=== PATIENT | male | born 1955 | race Caucasian/White ===

== ENCOUNTER 2017-08-09 15:57 | Emergency (ER) | payer MEDICAID ==
[2017-08-09 16:15] VITALS: BP 97/72
[2017-08-09] MEDS ORDERED: Sodium Chloride 0.9% 1,000 ML IV ONE (16:41)
--- NOTE | 2017-08-09 16:55 | EDM.PDOC ---
ED HPI GENERAL MEDICAL PROBLEM - General Chief Complaint: Gastrointestinal Problem Stated Complaint: CHEST CONGESTION/NAUSEA Time Seen by Provider: 08/09/17 16:22 Source of Information: Reports: Patient History Limitations: Reports: No Limitations - History of Present Illness INITIAL COMMENTS - FREE TEXT/NARRATIVE: Patient is a 61-year-old male who presents ED complaining of 2 day history of chest congestion, nausea, and intermittent dizziness. Patient states yesterday while working in the garden he bent over and upon standing became dizzy and fell over. There was no loss of conscious. Since then he has had intermittent dizziness. Sister states as of recent he's had a little bit of chest congestion with some postnasal drip and runny nose. There is no cough. No chest pain. No emesis. No abdominal pain. No dysuria. No recent sick exposure or diarrhea. He's been eating and drinking as normal with no issues. He has a history of throat cancer and recently completed chemotherapy March 2017 and radiation April 2017. Upon examination to the ED he really has no significant complaints. 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 Otherwise patient only takes tramadol and vitamins. He does not smoke. Alcohol use none. Recreational drug use none. PCP local. - Related Data Allergies Allergy/AdvReac Type Severity Reaction Status Date / Time No Known Allergies Allergy Verified 11/22/14 11:44 Past Medical History Gastrointestinal History: Reports: Chronic Constipation Musculoskeletal History: Reports: Back Pain, Chronic Oncologic (Cancer) History: Reports: Other (See Below) Other Oncologic History: oral Social & Family History - Family History Family Medical History: Noncontributory - Tobacco Use Smoking Status *Q: Never Smoker - Caffeine Use Caffeine Use: Reports: None - Recreational Drug Use Recreational Drug Use: No ED ROS GENERAL - Review of Systems Review Of Systems: ROS reveals no pertinent complaints other than HPI. ED EXAM, DIZZINESS - Physical Exam Exam: See Below Exam Limited By: No Limitations General Appearance: Alert, WD/WN, No Apparent Distress, Cachetic Eye Exam: Bilateral Eye: Normal Inspection, Nystagmus (none noted. ), PERRL Nystagmus: No: worsens with head to L, worsens with head to R, reproducible, reversible, constant, short duration Ears: Normal External Exam, Hearing Grossly Normal Nose: Normal Inspection, Normal Mucosa, No Blood Throat/Mouth: Normal Inspection, Normal Oropharynx, Normal Voice, No Airway Compromise Head Exam: Atraumatic, Normocephalic Vertigo: No: worsens with head to L, worsens with head to R, reproducible, reversible, constant, short duration Neck: Non-Tender, Full Range of Motion. No: Normal Inspection, Supple, Lymphadenopathy (L), Lymphadenopathy (R) Respiratory/Chest: No Respiratory Distress, Lungs Clear, Normal Breath Sounds, No Accessory Muscle Use, Chest Non-Tender Cardiovascular: Normal Peripheral Pulses, Regular Rate, Rhythm GI/Abdominal: Normal Bowel Sounds, Soft, Non-Tender, No Organomegaly, No Distention Neurological: Alert, Normal Mood/Affect, Normal Dorsiflexion, CN II-XII Intact, Normal Gait Back Exam: CVA Tenderness (L), CVA Tenderness (R). No: Normal Inspection Extremities: Non-Tender, No Pedal Edema, Normal Capillary Refill. No: Normal Inspection Psychiatric: Normal Affect, Normal Mood Skin Exam: Warm, Dry, Intact, Normal Color, No Rash Course - Vital Signs Last Recorded V/S: Last Vital Signs Temp 98.2 F 08/09/17 16:09 Pulse 90 08/09/17 16:09 Resp 18 08/09/17 16:09 BP 97/72 08/09/17 16:09 Pulse Ox 99 08/09/17 16:09 Orthostatic Blood Pressure [ 91/72 Standing] Orthostatic Blood Pressure [ 105/68 Sitting] Orthostatic Blood Pressure [ 111/69 Supine] - Orders/Labs/Meds Orders: Active Orders 24 hr Category Date Time Status EKG Documentation Completion [RC] STAT Care 08/09/17 16:41 Active Orthostatic Vital Signs [RC] ASDIRECTED Care 08/09/17 16:42 Active Chest 1V Frontal [CR] Stat Exams 08/09/17 16:41 Taken Chest wo Cont [CT] Stat Exams 08/09/17 18:26 Taken CULTURE BLOOD [BC] Stat Lab 08/09/17 16:58 Received CULTURE BLOOD [BC] Stat Lab 08/09/17 17:12 Received UA W/MICROSCOPIC [URIN] Stat Lab 08/09/17 21:20 Received Sodium Chloride 0.9% [Normal Saline] 1,000 ml Med 08/09/17 21:00 Active IV ASDIRECTED Blood Culture x2 Reflex Set [OM.PC] Stat Oth 08/09/17 16:41 Ordered Medication Orders Sodium Chloride (Normal Saline) 1,000 mls @ 125 mls/hr IV ASDIRECTED AZUCENA Last Admin: 08/09/17 21:15 Dose: 125 mls/hr Labs: Laboratory Tests 08/09/17 08/09/17 08/09/17 Range/Units 16:58 16:58 16:58 WBC 8.25 (4.23-9.07) K/mm3 RBC 2.95 L (4.63-6.08) M/mm3 Hgb 9.3 L (13.7-17.5) gm/L Hct 28.6 L (40.1-51.0) % MCV 96.9 H (79.0-92.2) fl MCH 31.5 (25.7-32.2) pg MCHC 32.5 (32.2-35.5) g/dl RDW Std Deviation 56.6 H (35.1-43.9) fL Plt Count 207 (163-337) K/mm3 MPV 10.5 (9.4-12.3) fl Neutrophils % (Manual) 86 H (40-60) % Band Neutrophils % 0 (0-10) % Lymphocytes % (Manual) 8 L (20-40) % Atypical Lymphs % 0 % Monocytes % (Manual) 6 (2-10) % Eosinophils % (Manual) 0 L (0.8-7.0) % Basophils % (Manual) 0 L (0.2-1.2) Platelet Estimate Adequate Plt Morphology Comment See note Hypochromasia 1+ slight Anisocytosis 1+ slight Microcytosis 1+ slight RBC Morph Comment Not Reportable Sodium 136 (136-145) mEq/L Potassium 4.0 (3.5-5.1) mEq/L Chloride 100 (98-107) mEq/L Carbon Dioxide 24 (21-32) mEq/L Anion Gap 16.0 H (5-15) BUN 39 H (7-18) mg/dL Creatinine 1.9 H (0.7-1.3) mg/dL Est Cr Clr Drug Dosing 31.43 mL/min Estimated GFR (MDRD) 36 (>60) mL/min BUN/Creatinine Ratio 20.5 H (14-18) Glucose 128 H (80-115) mg/dL Lactic Acid (0.4-2.0) mmol/L Calcium 8.4 L (8.5-10.1) mg/dL Total Bilirubin 0.5 (0.2-1.0) mg/dL AST 12 L (15-37) U/L ALT 8 L (16-63) U/L Alkaline Phosphatase 84 (46-116) U/L C-Reactive Protein 44.9 H* (<1.0) mg/dL Total Protein 6.4 (6.4-8.2) g/dl Albumin 1.8 L (3.4-5.0) g/dl Globulin 4.6 gm/dL Albumin/Globulin Ratio 0.4 L (1-2) Mycoplasma pneumon IgM Negative (NEGATIVE) 08/09/17 Range/Units 17:12 WBC (4.23-9.07) K/mm3 RBC (4.63-6.08) M/mm3 Hgb (13.7-17.5) gm/L Hct (40.1-51.0) % MCV (79.0-92.2) fl MCH (25.7-32.2) pg MCHC (32.2-35.5) g/dl RDW Std Deviation (35.1-43.9) fL Plt Count (163-337) K/mm3 MPV (9.4-12.3) fl Neutrophils % (Manual) (40-60) % Band Neutrophils % (0-10) % Lymphocytes % (Manual) (20-40) % Atypical Lymphs % % Monocytes % (Manual) (2-10) % Eosinophils % (Manual) (0.8-7.0) % Basophils % (Manual) (0.2-1.2) Platelet Estimate Plt Morphology Comment Hypochromasia Anisocytosis Microcytosis RBC Morph Comment Sodium (136-145) mEq/L Potassium (3.5-5.1) mEq/L Chloride (98-107) mEq/L Carbon Dioxide (21-32) mEq/L Anion Gap (5-15) BUN (7-18) mg/dL Creatinine (0.7-1.3) mg/dL Est Cr Clr Drug Dosing mL/min Estimated GFR (MDRD) (>60) mL/min BUN/Creatinine Ratio (14-18) Glucose (80-115) mg/dL Lactic Acid 1.7 (0.4-2.0) mmol/L Calcium (8.5-10.1) mg/dL Total Bilirubin (0.2-1.0) mg/dL AST (15-37) U/L ALT (16-63) U/L Alkaline Phosphatase (46-116) U/L C-Reactive Protein (<1.0) mg/dL Total Protein (6.4-8.2) g/dl Albumin (3.4-5.0) g/dl Globulin gm/dL Albumin/Globulin Ratio (1-2) Mycoplasma pneumon IgM (NEGATIVE) Meds: Medications Generic Name Dose Route Start Last Admin Trade Name Freq PRN Reason Stop Dose Admin Sodium Chloride 1,000 mls @ 125 mls/hr 08/09/17 21:00 08/09/17 21:15 Normal Saline IV 125 mls/hr ASDIRECTED AZUCENA Administration Discontinued Medications Generic Name Dose Route Start Last Admin Trade Name Freq PRN Reason Stop Dose Admin Azithromycin 500 mg 08/09/17 18:27 08/09/17 18:36 Zithromax PO 08/09/17 18:28 500 mg ONETIME ONE Administration Sodium Chloride 1,000 mls @ 999 mls/hr 08/09/17 16:41 08/09/17 17:05 Normal Saline IV 08/09/17 17:41 999 mls/hr ONETIME ONE Administration Ceftriaxone Sodium 1 gm/ 100 mls @ 200 mls/hr 08/09/17 18:24 08/09/17 18:36 Sodium Chloride IV 08/09/17 18:53 200 mls/hr ONETIME ONE Administration Lorazepam 0.5 mg 08/09/17 18:45 08/09/17 18:51 Ativan IVPUSH 08/09/17 18:46 0.5 mg ONETIME ONE Administration - Re-Assessments/Exams Free Text/Narrative Re-Assessment/Exam: IV established with normal saline 1 L. Initial labs and studies include CBC, chem 14, CRP, blood cultures 2, UA, chest x-ray one view, with second vitals, and EKG. Per sister patient was receiving IV fluids 3 times a week up until 3 weeks ago. Labs reviewed: White blood cell count 8.25, hemoglobin 9.3, platelet count 207, neutrophil percent is 86 with no left shift. Sodium 136, potassium 4.0, CO2 24, AG 16, BUN 39, creatinine 1.9 which is double baseline. Glucose 128, CRP elevated at 44.9. EKG: sinus rhythm rate of 87. No acute ST changes noted. Low voltage. CXR reviewed: left sided pleural effusion possible infiltration. I have ordered rocephin 1 gram IV and azithromycin 500mg PO to treat community aquired pneumonia. This was reviewed with Dr. Raul Peterson and she agrees. Suggested CT of the chest wo. 1844 I have ordered ativan 0.5 mg IVP since patient becomes claustrophobic with CT/MRI type imaging. Lactic Acid 1.7. Mycoplasma: negative 20[address] [facility] called and provided CT results. Radiologists does not see findings concerning for cardiac tamponade. CT Chest W/O IMPRESSION: 1. COPD 2. 5 mm pulmonary nodule in the right upper lobe. 3. Subsegmental atelectasis in the right middle lobe. 4. Consolidation in the left lower lobe compatible with pneumonia. 5. Large left pleural effusion which has a loculated contour. 6. Large left pericardial effusion and an effusion adjacent to the descending thoracic aorta. 7. Metastatic seeding of the pleura with associated malignant pleural effusions cannot be ruled out. Metastatic nodules could be obscured by the adjacent pleural fluid. 8. Atherosclerotic calcification of the coronary arteries and other nonacute findings as described above. I have discussed results of the CT study with the patient. He was not completely sure which hospital he underwent care for his throat cancer. Patient believes was [facility]. Sister is present with this discussion. Sister states the treatment was conducted at [facility]. Patient does not want to go to [place] due to the cost of traveling via ambulance and or by air. Thus has requested to be evaluated in [place]. [address] Liang claims correspondence clerk Hospitalists at [facility]. He has accepted the patient. Ambulance has been notified. Transfer paperwork completed. VS BP 109/67, HR 84, SPO2 97, RR 18. Departure - Departure Time of Disposition: 20:37 Disposition: DC/Tfer to Acute Hospital 02 Condition: Good Clinical Impression: Large pleural effusion, Pericardial effusion Pneumonia Qualifiers: Pneumonia type: due to unspecified organism Laterality: left Lung location: lower lobe of lung Qualified Code(s): J18.1 - Lobar pneumonia, unspecified organism - Discharge Information Instructions: Pericardial Effusion, Pleural Effusion, Community-Acquired Pneumonia, Adult Referrals: Kenneth Lazaro PA-C [Primary Care Provider] - - My Orders Last 24 Hours: My Active Orders 08/09/17 16:41 EKG Documentation Completion [RC] STAT Chest 1V Frontal [CR] Stat Blood Culture x2 Reflex Set [OM.PC] Stat 08/09/17 16:42 Orthostatic Vital Signs [RC] ASDIRECTED 08/09/17 16:58 CULTURE BLOOD [BC] Stat 08/09/17 17:12 CULTURE BLOOD [BC] Stat 08/09/17 18:26 Chest wo Cont [CT] Stat 08/09/17 21:00 Sodium Chloride 0.9% [Normal Saline] 1,000 ml IV ASDIRECTED 08/09/17 21:20 UA W/MICROSCOPIC [URIN] Stat - Assessment/Plan Last 24 Hours: My Active Orders 08/09/17 16:41 EKG Documentation Completion [RC] STAT Chest 1V Frontal [CR] Stat Blood Culture x2 Reflex Set [OM.PC] Stat 08/09/17 16:42 Orthostatic Vital Signs [RC] ASDIRECTED 08/09/17 16:58 CULTURE BLOOD [BC] Stat 08/09/17 17:12 CULTURE BLOOD [BC] Stat 08/09/17 18:26 Chest wo Cont [CT] Stat 08/09/17 21:00 Sodium Chloride 0.9% [Normal Saline] 1,000 ml IV ASDIRECTED 08/09/17 21:20 UA W/MICROSCOPIC [URIN] Stat
[2017-08-09] MEDS ORDERED: cefTRIAXone 1 GM in Sodium Chloride 0.9% 100 ML IV ONE (18:24)
[2017-08-09] MEDS ORDERED: Azithromycin 250 MG Tab PO ONE (18:27)
[2017-08-09] MEDS ORDERED: LORazepam 2 MG/ML SDV IVPUSH ONE (18:45)
[2017-08-09] MEDS ORDERED: Sodium Chloride 0.9% 1,000 ML IV SCH (21:00)
--- NOTE | 2017-08-12 08:51 | CR ---
Chest: Portable view of the chest is obtained. Comparison: No prior chest x-ray, previous chest CT of 04/19/15. Pleural effusion is seen within the left base. Mild adjacent parenchymal density is seen adjacent to the pleural effusion. Left upper and right lung are clear. Infusion catheter is seen entering from the right side. Heart size does not appear enlarged. Mild scoliosis is noted within the spine. Impression: 1. Left-sided pleural effusion with mild adjacent parenchymal density most likely representing chronic change from the pleural effusion. 2. Other incidental findings. Diagnostic code #3
--- NOTE | 2017-08-12 10:18 | CT ---
CT chest Technique: Multiple axial sections through the chest were obtained from above the lung apices inferiorly through the lung bases. Intravenous contrast was not utilized. Comparison: Prior chest x-ray performed earlier on the same day (5:23 PM) and prior chest CT study of 04/19/15. Findings: Loculated pleural effusion is seen within the left base. Small pericardial effusion is noted. Coronary artery calcification is seen. Port-A-Cath is present. Emphysematous change is noted. Small nodule noted within the right middle lobe which is stable from prior CT exam back to 06/10/14 which is felt to be incidental. Mild parenchymal density is noted within the right middle lobe believed to represent interval scarring. Slight parenchymal density noted within the left lung base most likely due to atelectasis and probable fibrosis secondary to the pleural effusion. Bone window settings were reviewed which show mild degenerative change within the spine. Impression: 1. Loculated left sided pleural effusion which is an interval change from previous exam. Pericardial effusion is also seen. Etiologies for this fluid is not seen. Associated parenchymal density is seen within the left base most likely due to combination of atelectasis and fibrosis. 2. Small parenchymal density within the right middle lobe most likely due to area of scarring. 3. Small right middle lobe nodule which remains stable from prior CT exams. 4. Emphysematous change and other incidental findings. Diagnostic code #3 I agree with preliminary report from [facility], finalized at 08/09/17, 8:59 PM Central Time
== END 2017-08-09 21:35 ==
LOC: JD.ED 15:57
DX: I31.3 Pericardial effusion (noninflammatory) (principal); J18.9 Pneumonia, unspecified organism; J90 Pleural effusion, not elsewhere classified
CPT/HCPCS: 36415; 71045; 71250; 80053; 81001; 83605; 85007; 85027; 86140; 86738; 87040; 93005; 96361; 96365; 96375; 99285; A9270; J0696; J2060; J7030; J7040; 93010

== ENCOUNTER 2018-12-09 11:03 | Emergency (ER) | payer MEDICAID ==
[2018-12-09 11:17] VITALS: BP 81/66; PULSE 91
[2018-12-09] MEDS ORDERED: Sodium Chloride 0.9% 10 ML Syringe FLUSH PRN (11:59)
[2018-12-09] MEDS ORDERED: Sodium Chloride 0.9% 1,000 ML IV ONE (11:59)
[2018-12-09] MEDS ORDERED: FLU Vacc QS2019-20(6MOS+)/PF 60 MCG/0.5 ML SYRINGE IM ONE (12:00)
--- NOTE | 2018-12-09 12:05 | EDM.PDOC ---
ED HPI GENERAL MEDICAL PROBLEM - General Chief Complaint: Respiratory Problem Stated Complaint: CHEST PAIN Time Seen by Provider: 12/09/18 11:13 Source of Information: Reports: Patient, Family (sisters), RN Notes Reviewed History Limitations: Reports: No Limitations - History of Present Illness INITIAL COMMENTS - FREE TEXT/NARRATIVE: Patient is a 63-year-old male who presents to the ED for evaluation of some shortness of breath. The patient states that over the past few days, he is been having some increased shortness of breath, is complaining of being cold. He does not have any fevers that he is aware of, and he states that he is normally chilled. He denies any nausea/vomiting/diarrhea, he had 1 episode of diarrhea a couple days ago for which she took Imodium. The sisters state that the imodium sat in his throat a little while, and they were questioning possible aspiration issues. He denies any cough or chest pain that he's been having. Patient notes he had a history of throat or tongue cancer a few years ago, for which she took chemotherapy for, and his sisters present in the room state that he had a good checkup in [place] here last month. History is somewhat limited due as the patient had repeats himself. Of note the patient's blood pressure was low at 81 systolically at time of initial triage, but has come up to 95/59 as he's been sitting in the room, heart rate 93, respiratory rate at 24 , when I was able to get a pulse ox, it was in the 90s on room air. The sister' s state that when his blood pressure gets low like this, he gets cold and somewhat forgetful. The patient's primary care provider is Kenneth Lazaro. - Related Data Allergies Allergy/AdvReac Type Severity Reaction Status Date / Time No Known Allergies Allergy Verified 12/09/18 11:17 Home Meds: Home Meds . [No Known Home Meds] 12/09/18 [History] Past Medical History HEENT History: Reports: None Cardiovascular History: Reports: None Respiratory History: Reports: SOB Gastrointestinal History: Reports: Chronic Constipation Genitourinary History: Reports: None Musculoskeletal History: Reports: Back Pain, Chronic Neurological History: Reports: None Psychiatric History: Reports: None Endocrine/Metabolic History: Reports: None Hematologic History: Reports: None Immunologic History: Reports: None Oncologic (Cancer) History: Reports: Other (See Below) Other Oncologic History: Oral. Pt unable to tell RN what type of cancer he has, but he has a port placed and has been done with chemo/radiation for the last few months on 12/09/18. Has cancer treatments in [place]. Dermatologic History: Reports: None - Infectious Disease History Infectious Disease History: Reports: None - Past Surgical History Head Surgeries/Procedures: Reports: None Social & Family History - Family History Family Medical History: Noncontributory - Tobacco Use Smoking Status *Q: Never Smoker - Caffeine Use Caffeine Use: Reports: Soda - Recreational Drug Use Recreational Drug Use: No ED ROS GENERAL - Review of Systems Review Of Systems: See Below Constitutional: Reports: Chills. Denies: Fever, Malaise, Weakness, Decreased Appetite HEENT: Reports: No Symptoms Respiratory: Reports: Shortness of Breath. Denies: Wheezing, Cough, Sputum Cardiovascular: Denies: Chest Pain Endocrine: Reports: No Symptoms GI/Abdominal: Denies: Abdominal Pain, Nausea, Vomiting : Reports: No Symptoms Musculoskeletal: Reports: No Symptoms Skin: Reports: No Symptoms Neurological: Reports: No Symptoms Psychiatric: Reports: No Symptoms Hematologic/Lymphatic: Reports: No Symptoms Immunologic: Reports: No Symptoms ED EXAM, GENERAL - Physical Exam Exam: See Below Exam Limited By: No Limitations General Appearance: Alert, WD/WN, No Apparent Distress Eye Exam: Bilateral Eye: EOMI, Normal Inspection, PERRL Throat/Mouth: Normal Inspection, Normal Lips, Normal Teeth, Normal Gums, Normal Oropharynx, Normal Voice, No Airway Compromise Head: Atraumatic, Normocephalic Neck: Normal Inspection Respiratory/Chest: No Respiratory Distress, Lungs Clear, Normal Breath Sounds, No Accessory Muscle Use, Chest Non-Tender Cardiovascular: Normal Peripheral Pulses, Regular Rate, Rhythm, No Edema, No Murmur Peripheral Pulses: 3+: Radial (L), Radial (R) GI/Abdominal: Normal Bowel Sounds, Soft, Non-Tender, No Distention, No Mass Extremities: Normal Inspection, Normal Capillary Refill Neurological: Alert, Oriented, Normal Cognition, No Motor/Sensory Deficits Psychiatric: Normal Affect, Normal Mood, Other (somewhat forgetful, but answers questions appropriately.) Skin Exam: Warm, Dry, Intact, Normal Color, No Rash EKG INTERPRETATION EKG Date: 12/09/18 Time: 11:50 Rhythm: NSR Rate (Beats/Min): 76 Patterson: Normal P-Wave: Present QRS: Normal ST-T: Normal QT: Normal Comparison: NA - No Prior EKG EKG Interpretation Comments: Reviewed by Dr. Peterson, he notes mild ST depression in inferior leads. Course - Vital Signs Last Recorded V/S: Last Vital Signs Temp 98.4 F 12/09/18 11:12 Pulse 91 12/09/18 11:12 Resp 18 12/09/18 11:12 BP 81/66 L 12/09/18 11:12 Pulse Ox 100 12/09/18 12:00 - Orders/Labs/Meds Orders: Active Orders 24 hr Category Date Time Status EKG Documentation Completion [RC] STAT Care 12/09/18 11:41 Active Influenza Vaccine Charge [RC] .DISCHARGE Care 12/09/18 11:25 Active Peripheral IV Care [RC] . DIRECTED Care 12/09/18 11:59 Active Sodium Chloride 0.9% [Saline Flush] Med 12/09/18 11:59 Active 10 ml FLUSH ASDIRECTED PRN Peripheral IV Insertion Adult [OM.PC] Stat Oth 12/09/18 11:59 Ordered Medication Orders Sodium Chloride (Saline Flush) 10 ml FLUSH ASDIRECTED PRN PRN Reason: Keep Vein Open Last Admin: 12/09/18 12:45 Dose: 10 ml Labs: Laboratory Tests 12/09/18 12/09/18 12/09/18 Range/Units 12:11 12:11 12:11 WBC 5.83 (4.23-9.07) K/mm3 RBC 5.15 (4.63-6.08) M/mm3 Hgb 15.0 D (13.7-17.5) gm/dl Hct 44.9 (40.1-51.0) % MCV 87.2 (79.0-92.2) fl MCH 29.1 (25.7-32.2) pg MCHC 33.4 (32.2-35.5) g/dl RDW Std Deviation 51.8 H (35.1-43.9) fL Plt Count 142 L D (163-337) K/mm3 MPV 10.3 (9.4-12.3) fl Neutrophils % (Manual) 74 H (40-60) % Band Neutrophils % 0 (0-10) % Lymphocytes % (Manual) 19 L (20-40) % Atypical Lymphs % 0 % Monocytes % (Manual) 6 (2-10) % Eosinophils % (Manual) 1 (0.8-7.0) % Basophils % (Manual) 0 L (0.2-1.2) Platelet Estimate Adequate RBC Morph Comment Normal PT 15.2 H (9.7-12.0) SECONDS INR 1.42 APTT 26 (22-31) SECONDS Sodium 143 (136-145) mEq/L Potassium 3.9 (3.5-5.1) mEq/L Chloride 106 (98-107) mEq/L Carbon Dioxide 25 (21-32) mEq/L Anion Gap 15.9 H (5-15) BUN 14 (7-18) mg/dL Creatinine 1.6 H (0.7-1.3) mg/dL Est Cr Clr Drug Dosing TNP Estimated GFR (MDRD) 44 (>60) mL/min BUN/Creatinine Ratio 8.8 L (14-18) Glucose 84 (80-115) mg/dL Lactic Acid (0.4-2.0) mmol/L Calcium 9.5 (8.5-10.1) mg/dL Total Bilirubin 0.2 (0.2-1.0) mg/dL AST 25 (15-37) U/L ALT 21 (16-63) U/L Alkaline Phosphatase 104 (46-116) U/L Troponin I < 0.017 (0.00-0.056) ng/mL NT-Pro-B Natriuret Pep (0-125) pg/mL Total Protein 8.3 H (6.4-8.2) g/dl Albumin 4.1 (3.4-5.0) g/dl Globulin 4.2 gm/dL Albumin/Globulin Ratio 1.0 (1-2) 12/09/18 12/09/18 12/09/18 Range/Units 12:11 12:11 16:11 WBC (4.23-9.07) K/mm3 RBC (4.63-6.08) M/mm3 Hgb (13.7-17.5) gm/dl Hct (40.1-51.0) % MCV (79.0-92.2) fl MCH (25.7-32.2) pg MCHC (32.2-35.5) g/dl RDW Std Deviation (35.1-43.9) fL Plt Count (163-337) K/mm3 MPV (9.4-12.3) fl Neutrophils % (Manual) (40-60) % Band Neutrophils % (0-10) % Lymphocytes % (Manual) (20-40) % Atypical Lymphs % % Monocytes % (Manual) (2-10) % Eosinophils % (Manual) (0.8-7.0) % Basophils % (Manual) (0.2-1.2) Platelet Estimate RBC Morph Comment PT (9.7-12.0) SECONDS INR APTT (22-31) SECONDS Sodium (136-145) mEq/L Potassium (3.5-5.1) mEq/L Chloride (98-107) mEq/L Carbon Dioxide (21-32) mEq/L Anion Gap (5-15) BUN (7-18) mg/dL Creatinine (0.7-1.3) mg/dL Est Cr Clr Drug Dosing Estimated GFR (MDRD) (>60) mL/min BUN/Creatinine Ratio (14-18) Glucose (80-115) mg/dL Lactic Acid 3.3 H 1.1 (0.4-2.0) mmol/L Calcium (8.5-10.1) mg/dL Total Bilirubin (0.2-1.0) mg/dL AST (15-37) U/L ALT (16-63) U/L Alkaline Phosphatase (46-116) U/L Troponin I (0.00-0.056) ng/mL NT-Pro-B Natriuret Pep 364 H (0-125) pg/mL Total Protein (6.4-8.2) g/dl Albumin (3.4-5.0) g/dl Globulin gm/dL Albumin/Globulin Ratio (1-2) Meds: Medications Generic Name Dose Route Start Last Admin Trade Name Freq PRN Reason Stop Dose Admin Sodium Chloride 10 ml 12/09/18 11:59 12/09/18 12:45 Saline Flush FLUSH 10 ml ASDIRECTED PRN Administration Keep Vein Open Discontinued Medications Generic Name Dose Route Start Last Admin Trade Name Freq PRN Reason Stop Dose Admin Sodium Chloride 1,000 mls @ 500 mls/hr 12/09/18 11:59 10/16/19 12:44 Normal Saline IV 12/09/18 13:58 500 mls/hr ONETIME ONE Administration Influenza Virus Vaccine 1 each 12/09/18 11:25 12/09/18 13:38 Pharmacy To Dose - Influenza Vaccine IM 12/09/18 11:26 Not Given ONETIME ONE Influenza Virus Vaccine 60 mcg 12/09/18 12:00 12/09/18 13:38 Fluzone Quad Syringe IM 12/09/18 12:01 60 mcg .ONCE ONE Administration - Re-Assessments/Exams Free Text/Narrative Re-Assessment/Exam: 12/09/18 11:46 Patient presents to the ED for the evaluation of feeling short of breath. I did order EKG, chest x-ray, CBC, CMP, lactic acid, PT/INR, PTT, BNP, and a troponin, IV to be placed with some IV fluids for initial management. 12/09/18 13:49 EKG was done, and demonstrates no acute abnormalities, Dr. Peterson appreciated some mild ST depression in the inferior leads, troponin is negative, all other labs are essentially within normal limits, however his lactic acid is elevated at 3.3. Patient was started on a IV bolus of fluids, this will be monitored again at 4 hours, patient is still slightly hypotensive, however recheck of his old records state that he runs in the low 100s systolically for blood pressure is normally. Chest x-ray was done, there was a decreased left-sided pleural effusion noted with mild pleural thickening along the left lower lung as well as slight blunting of the left lateral costophrenic angle. Lungs are hyperinflated is consistent with emphysematous change. Otherwise no acute process was noted. 12/09/18 15:13 BNP has resulted, and is in the 300s, which is slightly elevated but not super worrisome after the x-ray results, patient's blood pressure has been monitored, now is in the low 100s systolically after the liter of fluids has been given. Plan to repeat the lactic acid at around 4:15, to see if this is coming down, will hopefully be able to end up discharging the patient home with general recommendations as there are no acute abnormalities appreciated today. 12/09/18 16:58 Patient's lactic acid was read drawn, and is 1.1 at this time, patient is hemodynamically stable at this time, and we'll discharge home with general recommendations. Departure - Departure Time of Disposition: 16:58 Disposition: Home, Self-Care 01 Condition: Fair Clinical Impression: Dyspnea Qualifiers: Dyspnea type: unspecified Qualified Code(s): R06.00 - Dyspnea, unspecified - Discharge Information *PRESCRIPTION DRUG MONITORING PROGRAM REVIEWED*: No *COPY OF PRESCRIPTION DRUG MONITORING REPORT IN PATIENT SYL: No Instructions: Shortness of Breath, Adult, [id number] Referrals: Kenneth Lazaro PA-C [Primary Care Provider] - Forms: ED Department Discharge Additional Instructions: You were evaluated in the ER today regarding your shortness of breath. Your laboratory evaluation was essentially within normal limits, you are slightly dehydrated, you were given IV fluids to correct this. This did help seemed to relieve your symptoms. Recommend you follow up with your primary care physician some time next week to monitor your progress. Please return to the ED if your symptoms should change or worsen. - My Orders Last 24 Hours: My Active Orders 12/09/18 11:25 Influenza Vaccine Charge [RC] .DISCHARGE 12/09/18 11:41 EKG Documentation Completion [RC] STAT 12/09/18 11:59 Peripheral IV Care [RC] . DIRECTED Sodium Chloride 0.9% [Saline Flush] 10 ml FLUSH ASDIRECTED PRN Peripheral IV Insertion Adult [OM.PC] Stat - Assessment/Plan Last 24 Hours: My Active Orders 12/09/18 11:25 Influenza Vaccine Charge [RC] .DISCHARGE 12/09/18 11:41 EKG Documentation Completion [RC] STAT 12/09/18 11:59 Peripheral IV Care [RC] . DIRECTED Sodium Chloride 0.9% [Saline Flush] 10 ml FLUSH ASDIRECTED PRN Peripheral IV Insertion Adult [OM.PC] Stat
--- NOTE | 2018-12-09 12:50 | CR ---
Chest: Two views of the chest were obtained. Comparison: Prior chest x-ray of 08/21/17 and 09/04/17. Decreased left-sided pleural effusion is seen. Mild pleural thickening is noted along the left lower as well as slight blunting of the lateral left costophrenic angle. Lungs are hyperinflated compatible with emphysematous change. No acute parenchymal changes otherwise seen. Right-sided infusion catheter is noted. Heart size is normal. Bony structures are slightly osteopenic with mild scoliosis seen within the spine. Impression: 1. Decreased left-sided pleural effusion with mild residual pleural thickening seen along the left lower chest and lateral left costophrenic angle. 2. Emphysematous change. 3. Nothing acute is otherwise seen. Diagnostic code #3
== END 2018-12-09 17:20 | disposition home or self-care (01) ==
LOC: JD.ED 11:03
DX: R06.00 Dyspnea, unspecified (principal)
CPT/HCPCS: 36415; 71046; 80053; 83605; 83880; 84484; 85007; 85027; 85610; 85730; 90471; 90686; 93005; 96360; 96361; 99285; J7040; 93010; 99284; G0008